=== PATIENT | female | born 1970 | race Hispanic/Latino ===

== ENCOUNTER 2018-12-15 10:30 | Emergency (ER) | payer BC ==
[2018-12-15] MEDS ORDERED: OCTYL 2-CYANOACRYLATE 1 EACH TP ONE ×2 (10:57→11:17)
[2018-12-15] MEDS ORDERED: TETANUS/DIPHTHERIA TOXOID [ADULT] 0.5 ML VIAL IM ONE (11:17)
== END 2018-12-15 11:38 | disposition home or self-care (01) ==
LOC: EDH 10:30
DX: S61.217A Laceration without foreign body of left little finger without damage to nail, initial encounter (principal); J45.909 Unspecified asthma, uncomplicated; W27.8XXA Contact with other nonpowered hand tool, initial encounter; Y93.89 Activity, other specified; Y92.098 Other place in other non-institutional residence as the place of occurrence of the external cause; Y99.8 Other external cause status
CPT/HCPCS: 12001; 90471; 90714

== ENCOUNTER 2025-02-03 09:42 | Emergency (ER) | payer BC ==
[~2025-02-03] VITALS: Ht 147.3 cm; Wt 62.6 kg
--- NOTE | 2025-02-03 10:28 | ERN ---
General Chief Complaint: Knee Injury/Swelling Stated Complaint: LT KNEE PAIN Time Seen by MD: 10:04 History of Present Illness Initial Comments This is a 54-year-old female who presented to ED with severe pain in left knee, unable to flex at the left knee joint. The patient says she had issues with her knee for a long time. She said that 5 days back she started to have severe pain in left knee when she tried to flex it. Since then she is unable to flex her knee, rates pain 10/10 when tries to flex the knee. She denies fever, chills, nausea, vomiting, chest pain, palpitation, shortness of breath. Allergies: Coded Allergies: No Known Allergies (Unverified Allergy, Unknown, 12/15/18) Home Meds Active Scripts Naproxen Sodium (Naproxen Sodium) 550 Mg Tablet, 1 TAB PO BID for arthritis for 7 Days, #14 TAB 0 Refills Prov:DEVIKA WATERS MD 02/03/25 Past Medical History Past Medical History: Diabetes-Type II, Hypertension Past Surgical History: Other Constitutional: (-) chills, (-) diaphoresis, (-) fever, (-) malaise, (-) weakness, (-) other documentation Respiratory: (-) cough, (-) orthopnea, (-) short of breath, (-) stridor, (-) wheezing, (-) other documentation Cardiovascular: (-) chest pain, (-) edema, (-) palpitations, (-) syncope, (-) dyspnea on exertion, (-) other documentation Gastrointestinal/Abdominal: (-) nausea, (-) vomiting, (-) diarrhea, (-) abdominal pain, (-) abdominal distention, (-) constipation, (-) rectal bleeding, (-) dark stool/melena, (-) other documentation Musculoskeletal: (+) joint pain, (+) joint swelling Review of Systems: was completed Nurses Notes Reviewed: Yes Physical Exam General Appearance: (+) no apparent distress; (-) apparent distress, (-) mild distress, (-) moderate distress, (-) severe distress, (-) thin, (-) obese, (-) combative, (-) cachetic, (-) anxious, (-) other documentation Orientation: (+) alert, (+) oriented x 3; (-) disoriented, (-) other documentation Head/Face Trauma: No Respiratory: (+) chest non-tender, (+) lungs clear, (+) well ventilated; (-) decreased breath sounds, (-) retractions, (-) abnormal breath sound, (-) crackles, (-) plerual rub, (-) rales, (-) rhonchi, (-) stridor, (-) wheezing, (- ) other documentation Heart: (+) regular Extremities Comment Severe pain in left knee joint with flexion Results Laboratory and Microbiology Lab and Micro Result Laboratory Tests Test 02/03/25 10:18 White Blood Count 7.3 K/uL (4.8-10.8) Red Blood Count 4.98 MIL/uL (4.00-5.50) Hemoglobin 14.5 g/dL (12.0-16.0) Hematocrit 42.3 % (36-48) Mean Corpuscular Volume 84.9 fL (79-99) Mean Corpuscular Hemoglobin 29.1 pg (27.0-33.0) Mean Corpuscular Hemoglobin Concent 34.3 g/dL (32.0-36.0) Red Cell Distribution Width 12.4 % (11.0-15.5) Platelet Count 258 K/uL (130-400) Mean Platelet Volume 11.0 fL (7.5-10.5) H Immature Granulocyte % (Auto) 0.3 % (0-1) Neutrophils (%) (Auto) 57.0 % (40.0-77.0) Lymphocytes (%) (Auto) 31.1 % (21.0-51.0) Monocytes (%) (Auto) 7.3 % (3.0-13.0) Eosinophils (%) (Auto) 4.0 % (0.0-8.0) Basophils (%) (Auto) 0.3 % (0.0-5.0) Neutrophils # (Auto) 4.2 K/uL (1.8-7.7) Lymphocytes # (Auto) 2.3 K/uL (1.0-4.8) Monocytes # (Auto) 0.5 K/uL (0.1-1.0) Eosinophils # (Auto) 0.29 K/uL (0.00-0.70) Basophils # (Auto) 0.02 K/uL (0.00-0.20) Absolute Immature Granulocyte (auto 0.02 K/uL (0-1) Nucleated Red Blood Cells 0.0 % (0.0-0.19) Sodium Level 135 mmol/L (136-145) L Potassium Level 3.7 mmol/L (3.5-5.1) Chloride Level 99 mmol/L (101-111) L Carbon Dioxide Level 30 mmol/L (21-32) Blood Urea Nitrogen 10 mg/dL (7-18) Creatinine 0.5 mg/dL (0.5-1.0) Glomerular Filtration Rate Calc 110 mL/min (>90) Random Glucose 140 mg/dL (70-105) H Total Calcium 9.3 mg/dL (8.5-10.1) Labs Reviewed?: Yes EKG/XRAY/US/CT/MRI X-RAY Comment X-ray of left knee: Severely reduced joint space , probable osteoarthritis of left knee MDM MDM: Differential diagnosis: Severe osteoarthritis of left knee This is a 54-year-old female who presented to ED with severe pain in left knee . Patient says that her pain started 5 days back and has severe pain when she tries to Flexeril left knee. She denies fever, chills, shortness of breath, chest pain, palpitation. We gave ketorolac 15 mg IM for pain. We ordered CBC, BMP which are unremarkable. X-ray of left knee shows severely reduced joint space, probably osteoarthritis of left knee. Left knee immobilizer in place. Patient is hemodynamically stable and will discharge her home with pain medications. We advised the patient to follow up with orthopedic clinic outpatient in 1 week, follow up with his PCP in 3-5 days. ED Course Orders Procedure Category Date Status Time Knee 3vws Lt RAD 02/03/25 Taken 09:57 Ketorolac PHA 02/03/25 Complete Tromethamine 15mg/Ml 10:00 Cbc With Differential LAB 02/03/25 Complete 10:19 Basic Metabolic Panel LAB 02/03/25 Complete 10:19 Knee Immobilizer MIREYA 02/03/25 In Process 10:46 Current Medications Medications (Trade) Dose Ordered Sig/Jefe Route PRN Reason Start Time Stop Time Status Last Admin Dose Admin Ketorolac Tromethamine (toRADol) 15 mg ONCE ONCE IM 02/03/25 10:00 02/03/25 10:07 DC 02/03/25 11:01 Vital Signs Date Time Temp Pulse Resp B/P (MAP) Pulse Ox O2 Delivery O2 Flow Rate FiO2 02/03/25 09:43 96.6 84 20 141/90 99 Room Air DX & DISP Disposition: Discharge Departure Impression: Primary Impression: Osteoarthritis of left knee Condition: Stable Scripts Naproxen Sodium (Naproxen Sodium) 550 Mg Tablet 1 TAB PO BID for arthritis for 7 Days, #14 TAB 0 Refills Prov: DEVIKA WATERS MD 02/03/25 Additional Instructions: You likely have severe osteoarthritis of left knee joint. Take prescribed pain medications as directed, use cane, walker or knee brace for support, avoid high impact activities. Apply ice for pain or swelling, maintain healthy weight and balanced diet. Follow-up as advised and seek if severe pain, swelling, redness or fever occurs. Please follow-up with your PCP in 3-5 days. Please follow-up with outpatient orthopedic clinic in 1 week. Referrals: ANDREW HILL DO (PCP) SERGEI RUBIO DO Time of Disposition: 11:09 ATTESTATION BY PHYSICIAN I have seen and examined the patient. I reviewed the documentation, medical decision making, and treatment plan as noted by the resident provider above. I agree with the findings and plan of care. LANDRY CASTELLANOS MD, ADIL SHAH QUADRI MD Feb 03, 2025 10:28 LANDRY CASTELLANOS MD Feb 03, 2025 11:09
[2025-02-03 10:29] LABS: IMMATURE GRANULOCYTE ABSOLUTE 0.02 K/uL (0-1); NUCLEATED RED BLOOD CELLS 0.0 % (0.0-0.19); PLATELET COUNT (AUTO) 258 K/uL (130-400); RED BLOOD CELL COUNT(AUTO) 4.98 MIL/uL (4.00-5.50); RED CELL DISTRIBUTION WIDTH 12.4 % (11.0-15.5); WHITE BLOOD COUNT (AUTO) 7.3 K/uL (4.8-10.8)
[2025-02-03 10:38] LABS: CREATININE 0.5 mg/dL (0.5-1.0); GLOMERULAR FILTR. RATE CALC 110.0 mL/min (>90); GLUCOSE,RANDOM 140.0 mg/dL (70-105); SODIUM SERUM 135.0 mmol/L (136-145); UREA NITROGEN, BLOOD 10.0 mg/dL (7-18)
[2025-02-03] MEDS ORDERED: NAPR-1174 PO (11:00)
--- NOTE | 2025-02-03 11:01 | NUR ---
APPLIED 16" 3-PANEL KNEE IMMOBILIZER TO LT KNEE, PT TOLERATED WELL.
[2025-02-03 11:10] VITALS: BP 137/84; PULSE 80; RESP 20; TEMP 98.6; O2SAT 99
== END 2025-02-03 11:11 | disposition home or self-care (01) ==
LOC: EDH 09:42
DX: M17.12 Unilateral primary osteoarthritis, left knee (principal); E11.9 Type 2 diabetes mellitus without complications; I10 Essential (primary) hypertension; Z79.899 Other long term (current) drug therapy; Z98.890 Other specified postprocedural states
CPT/HCPCS: 99284; 29505; 80048; 85025; 36415; 73562; 96372; J1885